=== PATIENT | female | born 1995 | race Caucasian/White ===

== ENCOUNTER → 2017-04-23 | Outpatient (CLI) | payer OTHER ==
--- NOTE | 2017-04-23 17:09 | US ---
EXAMINATION TYPE: US pelvic complete DATE OF EXAM: 04/23/2017 COMPARISON: NONE CLINICAL HISTORY: R10.2 Pelvic pain. TV not done pt is virgin TECHNIQUE: Transabdominal (TA) Date of LMP: 04/04/2017 EXAM MEASUREMENTS: Uterus: 6.7 x 3.2 x 3.5 cm Endometrial Stripe: 1.7 cm Right Ovary: 3.0 x 1.6 x 2.6 cm Left Ovary: 2.7 x 2.1 x3.3 cm 1. Uterus: Anteverted wnl 2. Endometrium: wnl 3. Right Ovary: wnl 4. Left Ovary: wnl Spectral, color and waveform doppler imaging shows good arterial and venous flow within the ovaries ; there is no evidence for ovarian torsion. 5. Bilateral Adnexa: wnl 6. Posterior cul-de-sac: wnl IMPRESSION: NORMAL PELVIC ULTRASOUND.
== END | disposition home or self-care (01) ==
LOC: RADUSWWP 15:43
PROVIDERS: ATTEND Obstetrics & Gynecology
DX: R10.2 Pelvic and perineal pain (principal)
CPT/HCPCS: 76856

== ENCOUNTER → 2018-04-16 | Outpatient (CLI) | payer OTHER ==
--- NOTE | 2018-04-16 14:35 | US ---
EXAMINATION TYPE: US pelvic complete DATE OF EXAM: 04/16/2018 COMPARISON: US CLINICAL HISTORY: Pelvic Pain R10.2T. TECHNIQUE: Transabdominal (TA). Date of LMP: 04/12/2018 EXAM MEASUREMENTS: Uterus: 7.8 x 3.8 x 4.5 cm Endometrial Stripe: 0.9 cm Right Ovary: 3.3 x 2.1 x 3.5 cm Left Ovary: 3.4 x 2.5 x 3.5 cm 1. Uterus: Anteverted wnl 2. Endometrium: wnl 3. Right Ovary: wnl 4. Left Ovary: dominant follicle measure 1.8 cm 5. Bilateral Adnexa: wnl 6. Posterior cul-de-sac: no free fluid IMPRESSION: 1. Dominant left ovarian follicular cyst. Otherwise unremarkable study.
== END | disposition home or self-care (01) ==
LOC: RADUSWWP 13:53
PROVIDERS: ATTEND Family Medicine
DX: N83.202 Unspecified ovarian cyst, left side (principal)
CPT/HCPCS: 76856

== ENCOUNTER → 2020-07-22 | Outpatient (CLI) | payer OTHER ==
--- NOTE | 2020-07-22 16:30 | US ---
EXAMINATION TYPE: US kidneys/renal and bladder DATE OF EXAM: 07/22/2020 COMPARISON: NONE CLINICAL HISTORY: 25-year-old female R35.0 Urinary frequency; bladder pain. Patient states general pe lvic pain TECHNIQUE: Multiple sonographic images of the kidneys and bladder are obtained. FINDINGS: Right Kidney: 10.8 x 4.1 x 5.9cm with a 1.7 cm benign cortical cyst at the upper pole. Left Kidney: 11.3 x 5.5 x 5.4 cm No hydronephrosis on either side. Bladder: wnl Bilateral Jets seen: yes IMPRESSION: No hydronephrosis. A benign 1.7 cm cortical cyst on the right.
== END | disposition home or self-care (01) ==
LOC: RADUSWWP 15:37
PROVIDERS: ATTEND Urology
DX: N28.1 Cyst of kidney, acquired (principal)
CPT/HCPCS: 76770

== ENCOUNTER → 2020-08-20 | Outpatient (CLI) | payer OTHER ==
[2020-08-20 22:15] LABS: T4, Free (Free Thyroxine) 1.2 ng/dL (0.80-1.80)
== END | disposition home or self-care (01) ==
LOC: LABWHC1 14:14
PROVIDERS: ATTEND Psychiatry & Neurology Neurology
DX: R20.2 Paresthesia of skin (principal); R41.89 Other symptoms and signs involving cognitive functions and awareness; R41.0 Disorientation, unspecified
CPT/HCPCS: 36415; 82607; 82947; 84439; 84443

== ENCOUNTER → 2020-08-31 | Outpatient (CLI) | payer OTHER ==
--- NOTE | 2020-08-31 18:00 | CONS ---
CONSULTATION REASON FOR CONSULTATION: Hypersomnia. This 25-year-old female patient is coming in for excessive fatigue and sleepiness. This has been going on for many years. During her school years, the patient used to be feeling drowsy and sleepy and she has never been investigated. She claims that she is anxious all the time and she may be also depressed, although she has not been officially diagnosed or treated for these conditions. She lives in [place]. She lives alone. She seems to be quite socially isolated. She is not in favor of lot of company and she spends most of the time alone at home. 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 Currently she is not working, as work was quite overwhelming and she was not able to keep up with her job requirements and she decided to quit. She is living off some savings. She is living alone. Her parents live in the area. No . No girlfriend. No children. She goes to bed between 10 p.m. and midnight and she wakes up between 6 and 7 a.m. in the morning. She wakes up and she feels tired and she has trouble paying attention. She falls asleep during the day, worries about her sleep, and she is quite sleepy. She has annoying dreams. At times, she has very vivid dreams and she tosses and turns. She can easily fall into a dream as soon as she gets into her sleep. Sometimes she feels that her jaw drops and she cannot stop it. On one occasion, the patient heard some noise in the house when she was sleeping, and she thought that this was an auditory hallucination. When she woke up and tried to get up, she was unable to, as the patient felt paralyzed. On another occasion, the patient was sleeping in her living room and she felt that one of the TV figures was getting up and kissing her, and again she was unable to move. This was quite bothering for her. She has also had episodes where she drops on the floor whenever somebody tells her a joke and she is laughing. As such, there is a chance that the patient may be having a component of narcolepsy. She has no grinding of the teeth. No sleepwalking. No heartburn. No palpitations. No shortness of breath overnight. No family history of narcolepsy. No substance abuse. No alcoholism. Her weight has been stable over the past year or so. She feels like she is waking almost every half an hour to an hour from sleep and she at times gets up in the middle of the night to urinate. No snoring, as mentioned. PAST MEDICAL HISTORY: Chronic anxiety. PAST SURGICAL HISTORY: Negative. DRUG ALLERGIES: NOT KNOWN. MEDICATIONS: The patient takes oral contraception medication and vitamin D. SOCIAL HISTORY: Nonsmoker. No history of alcoholism. No history of IV drugs. She recently started smoking marijuana due to her anxiety. FAMILY HISTORY: Negative for narcolepsy. REVIEW OF SYSTEMS: Fourteen-point review of systems was done. Positive findings are all mentioned above in the history of present illness. PHYSICAL EXAMINATION: HER CURRENT VITALS: BP is 113/72, pulse 72, respirations 16, temperature 98.3, saturation 99% on room air. Height is 5 feet 6 inches, weight is 165, BMI 26.6. Neck size 13 inches. GENERAL APPEARANCE: Calm, comfortable. HEAD: Atraumatic, normocephalic. NECK: Supple. No JVD. No goiter or neck masses. LUNGS: Clear to auscultation. HEART: Heart sounds are regular rate and rhythm. Normal S1, S2. No S3, S4. No murmurs. ABDOMEN: Soft, nontender. No organomegaly. EXTREMITIES: No edema. No cyanosis or clubbing. NEUROLOGIC: The patient is awake and alert x3. IMPRESSION: Excessive hypersomnia along with symptoms of vivid dreams, sleep paralysis, occasional hallucination and possible cataplexy. Rule out narcolepsy. The patient has an [place] score of 14. PLAN: 1. Will proceed with a PSG and second-day MSLT. 2. Check urine drug screen on day of MSLT. 3. Check HLA-DR2 regarding type 1 narcolepsy. 4. Will continue to follow. MMODL / IJN: [id number] /
== END | disposition home or self-care (01) ==
LOC: SLEEP 13:13
PROVIDERS: ATTEND Internal Medicine Critical Care Medicine
DX: G47.10 Hypersomnia, unspecified (principal); G83.9 Paralytic syndrome, unspecified; R44.3 Hallucinations, unspecified; Z79.899 Other long term (current) drug therapy; F12.90 Cannabis use, unspecified, uncomplicated
CPT/HCPCS: 99211

== ENCOUNTER → 2020-08-31 | Outpatient (CLI) | payer OTHER | END | disposition home or self-care (01) | LOC: LABWHC1 14:09 | PROVIDERS: ATTEND Internal Medicine Critical Care Medicine | DX: G47.419 Narcolepsy without cataplexy (principal) | CPT/HCPCS: 36415 ==

== ENCOUNTER → 2021-03-02 | Outpatient (CLI) | payer OTHER ==
[2021-03-02 17:45] LABS: African American GFR (CKD) 147.9 (60.0-200.0); Anion Gap 9.3 mmol/L (4.00-12.00); Carbon Dioxide 24.7 mmol/L (21.6-31.8); Non-African American GFR(CKD) 127.6 (60.0-200.0); Potassium 4.2 mmol/L (3.5-5.5)
== END | disposition home or self-care (01) ==
LOC: LABWHC1 09:57
PROVIDERS: ATTEND Urology
DX: R35.0 Frequency of micturition (principal)
CPT/HCPCS: 36415; 80051; 82565; 84520

== ENCOUNTER → 2021-04-07 | Outpatient (CLI) | payer OTHER ==
--- NOTE | 2021-04-07 10:22 | CT ---
EXAMINATION TYPE: CT abdomen pelvis wo/w con DATE OF EXAM: 04/07/2021 COMPARISON: None HISTORY: Unspecified abdominal pain CT DLP: 2165 mGycm CONTRAST: CT scan of the abdomen and pelvis is performed without Oral Contrast and without and with IV Contrast , patient injected with 100 mL of Isovue 300. FINDINGS: LUNG BASES-: No visible nodule. No infiltrate. LIVER/GB: No calcified gallstones. No space occupying hepatic lesion. Biliary tree is of normal ca liber. PANCREAS: No inflammation. No distinct mass. SPLEEN: No splenic enlargement. No lesion seen. ADRENALS: No nodule. No thickening. KIDNEYS/BLADDER: No hydronephrosis. No nephrolithiasis. Simple cyst upper pole right kidney. Urinar y bladder grossly unremarkable. BOWEL: Normal appendix. Normal bowel caliber. No inflammation. GENITAL ORGANS: No gross abnormality. LYMPH NODES: No greater than 1cm abdominal or pelvic lymph nodes are appreciated. AORTA: No significant abnormality. OSSEOUS STRUCTURES: No significant abnormality is seen. OTHER: No significant additional abnormality is seen. IMPRESSION: 1. No significant abnormality to account for the patient's symptoms.
== END | disposition home or self-care (01) ==
LOC: RADCTMAIN 09:03
PROVIDERS: ATTEND Urology
DX: R10.9 Unspecified abdominal pain (principal)
CPT/HCPCS: 74178; Q9967

== ENCOUNTER → 2023-03-09 | Outpatient (CLI) | payer OTHER ==
[2023-03-09 19:37] LABS: ALT 83 U/L (8-44); AST 44 U/L (13-35); African American GFR (CKD) 137.2 (60.0-200.0); Albumin 4.6 g/dL (3.8-4.9); Albumin/Globulin Ratio 1.98 (1.60-3.17); Alkaline Phosphatase 68 U/L (41-126); Bilirubin, Conjugated <0.20 mg/dL (0.20-0.40); Blood Urea Nitrogen 10.8 mg/dL (9.0-27.0); Calcium 9.4 mg/dL (8.7-10.3); Carbon Dioxide 25.6 mmol/L (20.0-27.5); Chloride 104 mmol/L (96-109); Chol/HDL Ratio 3.75 Ratio; Globulin 2.3 g/dL (1.6-3.3); Glucose 100 mg/dL (70-110); LDL Cholesterol,Calculated 84.8 mg/dL (0.0-131.0); Non-African American GFR(CKD) 118.4 (60.0-200.0); Potassium 4.3 mmol/L (3.5-5.5); Sodium 141 mmol/L (135-145); Total Protein 6.9 g/dL (6.2-8.2)
[2023-03-09 20:47] LABS: Basophils # (A) 0.02 X 10*3/uL (0.00-0.10); Basophils % (A) 0.2 %; Eosinophils # (A) 0.08 X 10*3/uL (0.04-0.35); HCT 41.4 % (37.2-46.3); HGB 13.6 g/dL (12.0-15.0); Immature Grans, Automated 0.7 %; Lymphocytes # (A) 1.84 X 10*3/uL (0.90-5.00); MCH 30.9 pg (27.0-32.0); MCHC 32.9 g/dL (32.0-37.0); MCV 94.1 fL (80.0-97.0); Mean Platelet Volume 11.4 fL (9.5-12.2); Monocytes # (A) 0.53 X 10*3/uL (0.20-1.00); Monocytes % (A) 6.3 %; NRBC Per 100 WBC 0 /100 WBCS (0.0-0.0); Neutrophils # (A) 5.82 X 10*3/uL (1.80-7.70); Neutrophils % (A) 69.8 %; Platelet Count 179 X 10*3/uL (140-440); RDW 13.1 % (11.5-14.5); WBC 8.35 X 10*3/uL (4.50-10.00)
== END | disposition home or self-care (01) ==
LOC: LABWHC1 11:29
PROVIDERS: ATTEND Psychiatry & Neurology Psychiatry
DX: Z79.899 Other long term (current) drug therapy (principal)
CPT/HCPCS: 36415; 80053; 80061; 82248; 83036; 84146; 84443; 85025

== ENCOUNTER → 2023-05-28 | Outpatient (CLI) | payer OTHER ==
--- NOTE | 2023-05-29 07:59 | US ---
EXAMINATION TYPE: US kidneys/renal and bladder DATE OF EXAM: 05/28/2023 COMPARISON: CT & US CLINICAL INDICATION: Female, 28 years old with history of N28.1 CYST OF KIDNEY, ACQUIRED; F/U right r enal cyst visualized on prior, pt has no other complaints at this time EXAM MEASUREMENTS: Right Kidney: 11.8 x 5.2 x 5.6 cm Left Kidney: 12.3 x 5.6 x 5.2 cm Right Kidney: Cystic lesion upper pole= 1.5 x 1.2 x 1.5 cm, appears stable Left Kidney: Appeared wnl Bladder: wnl Bilateral Jets seen: Yes There is no evidence for hydronephrosis at this point in time. No nephrolithiasis is seen. No rafa s are identified. The urinary bladder is anechoic. Bilateral ureteral jets are seen. IMPRESSION: No evidence for obstructive uropathy.
== END | disposition home or self-care (01) ==
LOC: RADUSWWP 16:25
PROVIDERS: ATTEND Family Medicine
DX: N28.1 Cyst of kidney, acquired (principal)
CPT/HCPCS: 76770

== ENCOUNTER 2024-01-17 07:59 | Day surgery (SDC) | payer OTHER ==
[2024-01-16 08:47] VITALS: BMI 41.1
--- NOTE | 2024-01-17 07:05 | P.GSHP ---
History of Present Illness H&P Date: 01/17/24 CHIEF COMPLAINT: Change in bowel habits HISTORY OF PRESENT ILLNESS: The patient is a 28-year-old female who presents for change in bowel habits over 6 month. Lower endoscopy was offered for further evaluation and management. PAST MEDICAL HISTORY: Please see list. PAST SURGICAL HISTORY: Please see list. MEDICATIONS: Please see list. ALLERGIES: Please see list. SOCIAL HISTORY: No illicit drug use FAMILY HISTORY: No reports of Crohn disease or ulcerative colitis. REVIEW OF ORGAN SYSTEMS: CONSTITUTIONAL: No reports of fevers or chills. PHYSICAL EXAM: VITAL SIGNS: Stable GENERAL: Well-developed pleasant in no acute distress. HEENT: No scleral icterus. Extraocular movements grossly intact. Moist buccal mucosa. NECK: Supple without lymphadenopathy. CHEST: Unlabored respirations. Equal bilateral excursions. CARDIOVASCULAR: Regular rate and rhythm. Distal 2+ pulses. ABDOMEN: Soft, nontender, nondistended. MUSCULOSKELETAL: No clubbing, cyanosis, or edema. ASSESSMENT: 1. Change in bowel habit PLAN: 1. Recommend proceeding with a lower endoscopy Past Medical History Past Medical History: GERD/Reflux Additional Past Medical History / Comment(s): freq loose stools,increased acid reflux History of Any Multi-Drug Resistant Organisms: None Reported Additional Past Surgical History / Comment(s): [place] teeth. 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.' Past Anesthesia/Blood Transfusion Reactions: No Reported Reaction Additional Past Anesthesia/Blood Transfusion Reaction / Comment(s): no hx blood transfusion Smoking Status: Never smoker - Past Family History Mother Family Medical History: Deep Vein Thrombosis (DVT) Medications and Allergies Home Medications Medication Instructions Recorded Confirmed Type Ergocalciferol [Vitamin D2 (1250 50,000 unit PO Q14D 01/16/24 01/16/24 History Mcg = 31900 Iu)] Paliperidone Palmitate [Invega 1 dose IM Q30D 01/16/24 01/16/24 History Sustenna] Allergies Allergy/AdvReac Type Severity Reaction Status Date / Time latex Allergy Itching Verified 01/16/24 08:47 doxylamine AdvReac Hallucinati Verified 01/16/24 08:24 ons
[~2024-01-17 07:59] MED LIST: LACTATED RINGERS 1,000 ML IV SCH; LIDOCAINE 1% (10MG/ML) FOR IV START INTRADERMA PRN
[2024-01-17] MEDS: LACTATED RINGERS 1,000 ML IV ONE (08:15)
[2024-01-17] MEDS ORDERED: PROPOFOL 10 MG/ML 20 ML VIAL IV ONE (09:10)
[2024-01-17] MEDS ORDERED: LIDOCAINE 1% INJ 10MG/ML (20 ML MDV) ONE (09:10)
--- NOTE | 2024-01-17 09:28 | P.HPADDEND ---
H&P Addendum H&P Addendum Date: 01/17/24 Patient reports severe uncontrolled gastroesophageal reflux disease in addition to current symptoms for over 2 months. Will proceed with upper endoscopy.
--- NOTE | 2024-01-17 09:29 | P.PCN ---
Date of Procedure: 01/17/24 Description of Procedure: PREOPERATIVE DIAGNOSIS: Gastroesophageal reflux disease. Morbid obesity. POSTOPERATIVE DIAGNOSIS: Gastroesophageal reflux disease. Morbid obesity. Gastritis, chronic OPERATION: Esophagogastroduodenoscopy with biopsies along esophagus, antrum and duodenum SURGEON: Moon Gutierrez MD ANESTHESIA: MAC. INDICATIONS: The patient is a 28-year-old female who presents with reflux disease. Benefits and risks of the procedure were described. Informed consent was obtained. DESCRIPTION: The patient was brought into the endoscopy suite and laid in the left lateral decubitus position. An Olympus gastroscope was passed along the posterior oropharynx down to the distal esophagus where the squamocolumnar junction was encountered at 39 cm from the incisors. The stomach was entered and no bile reflux was found. Additional findings are listed below. Biopsies with cold forceps were obtained of the antrum. The first through third portion of the duodenum was examined. Retroflexion of the scope confirmed Hill grade 3 lower esophageal valve. The squamocolumnar junction demonstrated LA grade B erosive esophagitis. The stomach was desufflated. The patient tolerated the procedure well. FINDINGS: Squamocolumnar junction 39 cm from the incisors. Diaphragmatic hiatus at 39 cm. Hill grade 3 lower esophageal valve. LA grade B erosive esophagitis. Biopsies obtained Biopsies obtained of the duodenum. Chronic gastritis with biopsies obtained. RECOMMENDATIONS: Upper endoscopy as needed.
[2024-01-17 10:00] VITALS: BP 108/70; PULSE 69; RESP 14
--- NOTE | 2024-01-17 10:02 | P.PCN ---
Date of Procedure: 01/17/24 Description of Procedure: PREOPERATIVE DIAGNOSIS: Abnormal stool function Change in bowel habits POSTOPERATIVE DIAGNOSIS: Microscopic colitis OPERATION: Colonoscopy to the cecum, ileocecal valve and appendiceal orifice. Colonoscopy with random cold forceps biopsies for microscopic colitis SURGEON: Moon Gutierrez MD. ANESTHESIA: MAC. INDICATIONS: The patient is a 28-year-old female who presents with altered stools including change in bowel habits. Benefits and risks were described and informed consent was obtained. DESCRIPTION OF PROCEDURE: The patient had undergone Suprep. The patient had been brought into the operating room and laid in the left lateral decubitus position. After adequate intravenous sedation, the rectum was examined with 2% lidocaine jelly. No external hemorrhoids were encountered. The rectal tone was within normal limits. No lesions were palpated in the rectal vault. An Olympus colonoscope was advanced until the cecum, ileocecal valve and appendiceal orifice were clearly viewed. The prep was excellent. No scattered diverticulosis was encountered. No colonic polyps were found. Cold forceps biopsies randomly were obtained for microscopic colitis. Retroflexion of the scope demonstrated grade 1 internal hemorrhoids without active bleeding or inflammation. The colon was desufflated. The patient had tolerated the procedure well. Withdrawal time was over 6 minutes. FINDINGS: Aronchick preparation quality scale 1 (1-5) Internal hemorrhoids, grade 1 No external prolapsed hemorrhoids. No arteriovenous malformations. No adenomatous polyps. Cold forceps biopsies obtained for microscopic colitis RECOMMENDATIONS: Lower endoscopy as needed Plan - Discharge Summary Discharge Rx Participant: No New Discharge Prescriptions: New Omeprazole [PriLOSEC] 40 mg PO DAILY #14 cap Continue Paliperidone Palmitate [Invega Sustenna] 1 dose IM Q30D Ergocalciferol [Vitamin D2 (1250 Mcg = 96600 Iu)] 50,000 unit PO Q14D Discharge Medication List Ergocalciferol [Vitamin D2 (1250 Mcg = 97691 Iu)] 50,000 unit PO Q14D 01/16/24 [History] Paliperidone Palmitate [Invega Sustenna] 1 dose IM Q30D 01/16/24 [History] Omeprazole [PriLOSEC] 40 mg PO DAILY #14 cap 01/17/24 [Rx] Follow up Appointment(s)/Referral(s): Moon Gutierrez MD [STAFF PHYSICIAN] - 02/12/24 10:15 am Patient Instructions/Handouts: Gastritis (DC), GERD (Gastroesophageal Reflux Disease) (DC), Microscopic Colitis (DC) Discharge Disposition: HOME SELF-CARE
== END 2024-01-17 10:21 | disposition home or self-care (01) ==
LOC: ORWHC2ENDO 07:59
PROVIDERS: ATTEND Surgery Plastic and Reconstructive Surgery
DX: K64.0 First degree hemorrhoids (principal); K52.839 Microscopic colitis, unspecified; K21.00 Gastro-esophageal reflux disease with esophagitis, without bleeding; E66.01 Morbid (severe) obesity due to excess calories; K29.50 Unspecified chronic gastritis without bleeding; K31.9 Disease of stomach and duodenum, unspecified; Z91.040 Latex allergy status; Z79.899 Other long term (current) drug therapy
CPT/HCPCS: 81025; 88305; 45380; 43239; J2001; J2704

== ENCOUNTER → 2025-01-20 | Outpatient (CLI) | payer OTHER ==
--- NOTE | 2025-01-31 01:17 | CE ---
CARDIAC ELECTROPHYSIOLOGY REPORT STUDY: A 3-day Holter monitor. The patient was monitored for 3 days. The baseline rhythm appeared to be sinus mechanism with an average heart rate of 75 beats per minute. PVC burden was noted in less than 1%. No significant sinus pause or sinus arrest. No advanced AV block noted. CONCLUSION: 1. This is a 3-day Holter monitor. 2. The baseline rhythm appeared to be sinus mechanism. 3. Rare PVCs and rare PACs. 4. No significant sinus pause or sinus arrest. MMODL / IJN: [id number] /
== END | disposition home or self-care (01) ==
LOC: RADECHMAIN 14:17
PROVIDERS: ATTEND Family Medicine
DX: I49.9 Cardiac arrhythmia, unspecified (principal); I49.3 Ventricular premature depolarization
CPT/HCPCS: 93225